=== PATIENT | female | born 1975 | race Caucasian/White ===

== ENCOUNTER 2017-03-17 07:43 | Emergency (ER) | payer BC ==
[~2017-03-17] VITALS: Ht 165.1 cm; Wt 62.3 kg
[~2017-03-17 07:43] MED LIST: ZOLOFT 100MG100 MG PO
[2017-03-17 07:50] VITALS: BP 155/87; TEMP 97.8
[2017-03-17] MEDS ORDERED: PROTONIX 40MG T40 MG PO (08:13)
[2017-03-17] MEDS ORDERED: CELEBREX 200MG200 MG PO (08:13)
[2017-03-17] MEDS ORDERED: NEURONTIN600 MG/TAB PO (08:13)
[2017-03-17] MEDS ORDERED: SINGULAIR 110 MG/TAB PO (08:14)
[2017-03-17] MEDS ORDERED: EPITOL PO (08:14)
[2017-03-17] MEDS ORDERED: ALLEGRA 180MG180 MG PO (08:15)
[2017-03-17] MEDS ORDERED: CYMBALTA 60MG60 MG PO (08:15)
[2017-03-17] MEDS ORDERED: BENADRYL25 M2 PO (08:16)
[2017-03-17 08:33] LABS: BASO # 0.1 (0.0-0.2); BASO % 0.8 % (0.0-2.0); EOS # 0.2 (0.0-0.7); EOS % 2.1 % (0-4.0); GRAN # 8.6 (1.4-6.5); GRAN % 86.8 % (42.2-75.2); LYMPH # 0.7 (1.2-3.4); LYMPH % 6.9 % (20.0-51.0); MEAN CELL VOLUME 88 fl (80.0-100.0); MEAN CORPUSCULAR HGB CONC 33 g/dl (33.0-37.0); MEAN PLATELET VOLUME 9.5 fl (7.4-10.4); MONO # 0.3 (0.1-0.6); MONO % 2.8 % (1.7-9.3); PLATELET COUNT 385 K/mm3 (130-400); RED BLOOD COUNT 3.93 M/mm3 (4.10-5.30); REDCELL DISTRIBUTION WIDTH-CV 12.8 % (11.5-14.5); WHITE BLOOD COUNT 9.9 K/mm3 (4.8-10.8)
[2017-03-17 08:37] LABS: HEMATOCRIT 34.7 % (37.0-47.0); HEMOGLOBIN 11.5 g/dl (12.5-16.0); MEAN CORPUSCULAR HEMOGLOBIN 29 pg (27.0-31.0)
[2017-03-17 08:48] LABS: ADJUSTED CALCIUM 9.1 mg/dL (8.4-10.2); ALBUMIN 4.5 gm/dL (3.5-5.0); BILIRUBIN,TOTAL 0.4 mg/dL (0.0-1.0); C-REACTIVE PROTEIN 0.9 mg/dL (0.0-0.9); CALCIUM 9.5 mg/dL (8.4-10.2); CREATININE, serum 0.53 mg/dL (0.52-1.25); TOTAL PROTEIN 7.4 gm/dL (6.4-8.2)
[2017-03-17] MEDS ORDERED: PERCOCET 325 MG1 TA2 PO (09:14)
[2017-03-17 09:46] VITALS: PULSE 93
[2017-03-17 09:50] LABS: ERYTHROCYTE SEDIMENTATION RATE 16 mm/hr (0-20)
== END 2017-03-17 09:47 | disposition home or self-care (01) ==
LOC: COL.ER 07:43
PROVIDERS: Physician Assistant
DX: G89.18 Other acute postprocedural pain (principal); M54.2 Cervicalgia; R51 Headache; G50.0 Trigeminal neuralgia; Z86.61 Personal history of infections of the central nervous system
CPT/HCPCS: J1170; J2405; J2550; J7030

== ENCOUNTER 2017-12-03 08:51 | Emergency (ER) | payer SELFPAY ==
[~2017-12-03] VITALS: Ht 165.1 cm; Wt 63.6 kg
[~2017-12-03 08:51] MED LIST changes: +ALLEGRA 180MG180 MG PO; +BENADRYL25 M2 PO; +CARAFATE 1GM1 G PO; +CELEBREX 200MG200 MG PO; +CYMBALTA 60MG60 MG PO; +EPITOL PO; +NEURONTIN600 MG/TAB PO; +PERCOCET 325 MG1 TA2 PO; +PROTONIX 40MG T40 MG PO; +SINGULAIR 110 MG/TAB PO
[2017-12-03 08:54] VITALS: TEMP 97.4
[2017-12-03] MEDS ORDERED: IMITREX 25MG TA25 MG (09:03)
[2017-12-03] MEDS ORDERED: PHENERGAN 25 TA25 MG PO (09:03)
[2017-12-03 10:38] VITALS: BP 142/80; PULSE 85
== END 2017-12-03 10:41 | disposition home or self-care (01) ==
LOC: COL.ER 08:51
DX: G43.909 Migraine, unspecified, not intractable, without status migrainosus (principal); G89.29 Other chronic pain; M54.2 Cervicalgia; Z98.890 Other specified postprocedural states
CPT/HCPCS: J0595; J2550; J3030

== ENCOUNTER → 2018-07-29 | Outpatient (CLI) | payer BC ==
[~2018-07-29] MED LIST changes: +IMITREX 25MG TA25 MG; +PHENERGAN 25 TA25 MG PO
== END ==
LOC: BHSO 13:39
DX: F33.1 Major depressive disorder, recurrent, moderate (principal)

== ENCOUNTER → 2018-08-08 | Outpatient (CLI) | payer BC | LOC: BHSO 13:00 | DX: F41.1 Generalized anxiety disorder (principal) ==

== ENCOUNTER → 2018-08-24 | Outpatient (CLI) | payer BC | LOC: BHSO 08-23 12:58 | DX: F41.1 Generalized anxiety disorder (principal) ==

== ENCOUNTER → 2018-09-05 | Outpatient (CLI) | payer BC | LOC: BHSO 12:53 | DX: F41.1 Generalized anxiety disorder (principal) ==

== ENCOUNTER → 2018-09-12 | Outpatient (CLI) | payer BC | LOC: BHSO 13:01 | DX: F41.1 Generalized anxiety disorder (principal) ==

== ENCOUNTER → 2018-09-23 | Outpatient (CLI) | payer BC | LOC: BHSO 10:56 | DX: F33.1 Major depressive disorder, recurrent, moderate (principal) ==

== ENCOUNTER → 2018-09-26 | Outpatient (CLI) | payer BC | LOC: BHSO 12:57 | DX: F41.1 Generalized anxiety disorder (principal) ==

== ENCOUNTER → 2018-10-03 | Outpatient (CLI) | payer BC | LOC: BHSO 13:00 | DX: F41.1 Generalized anxiety disorder (principal) ==

== ENCOUNTER → 2018-10-07 | Outpatient (CLI) | payer BC | LOC: BHSO 09:58 | DX: F33.41 Major depressive disorder, recurrent, in partial remission (principal) | CPT/HCPCS: G0463 ==

== ENCOUNTER → 2018-10-10 | Outpatient (CLI) | payer BC | LOC: BHSO 13:01 | DX: F41.1 Generalized anxiety disorder (principal) ==

== ENCOUNTER → 2018-11-16 | Outpatient (CLI) | payer BC | LOC: BHSO 09:06 | DX: F33.0 Major depressive disorder, recurrent, mild (principal) ==

== ENCOUNTER → 2018-11-23 | Outpatient (CLI) | payer BC | LOC: BHSO 10:03 | DX: F33.1 Major depressive disorder, recurrent, moderate (principal) ==

== ENCOUNTER → 2018-12-07 | Outpatient (CLI) | payer BC | LOC: BHSO 09:01 | DX: F33.2 Major depressive disorder, recurrent severe without psychotic features (principal) ==

== ENCOUNTER → 2018-12-09 | Outpatient (CLI) | payer BC | LOC: BHSO 10:01 | DX: F06.32 Mood disorder due to known physiological condition with major depressive-like episode (principal) | CPT/HCPCS: G0463 ==

== ENCOUNTER → 2018-12-13 | Outpatient (CLI) | payer BC | LOC: BHSO 15:00 | DX: F06.32 Mood disorder due to known physiological condition with major depressive-like episode (principal) ==

== ENCOUNTER → 2018-12-21 | Outpatient (CLI) | payer BC | LOC: BHSO 13:02 | DX: F33.1 Major depressive disorder, recurrent, moderate (principal) ==

== ENCOUNTER → 2019-01-04 | Outpatient (CLI) | payer BC | LOC: BHSO 14:00 | DX: F33.1 Major depressive disorder, recurrent, moderate (principal) ==

== ENCOUNTER → 2019-01-13 | Outpatient (CLI) | payer BC | LOC: BHSO 13:15 | DX: F06.32 Mood disorder due to known physiological condition with major depressive-like episode (principal) | CPT/HCPCS: G0463 ==

== ENCOUNTER → 2019-01-18 | Outpatient (CLI) | payer BC | LOC: BHSO 14:01 | DX: F33.1 Major depressive disorder, recurrent, moderate (principal) ==

== ENCOUNTER → 2019-02-01 | Outpatient (CLI) | payer BC | LOC: BHSO 12:58 | DX: F33.1 Major depressive disorder, recurrent, moderate (principal) ==

== ENCOUNTER → 2019-02-15 | Outpatient (CLI) | payer BC | LOC: BHSO 12:59 | DX: F41.1 Generalized anxiety disorder (principal) ==

== ENCOUNTER → 2019-02-21 | Outpatient (CLI) | payer BC | LOC: MC.RAD 10:24 | DX: Z12.31 Encounter for screening mammogram for malignant neoplasm of breast (principal) ==

== ENCOUNTER → 2019-03-01 | Outpatient (CLI) | payer BC | LOC: BHSO 13:56 | DX: F33.1 Major depressive disorder, recurrent, moderate (principal) ==

== ENCOUNTER → 2019-03-15 | Outpatient (CLI) | payer BC | LOC: BHSO 13:59 | DX: F33.0 Major depressive disorder, recurrent, mild (principal) ==

== ENCOUNTER → 2019-03-29 | Outpatient (CLI) | payer BC | LOC: BHSO 14:00 | DX: F33.1 Major depressive disorder, recurrent, moderate (principal) ==

== ENCOUNTER → 2019-04-12 | Outpatient (CLI) | payer BC | LOC: BHSO 13:59 | DX: F33.1 Major depressive disorder, recurrent, moderate (principal) ==

== ENCOUNTER → 2019-04-14 | Outpatient (CLI) | payer BC | LOC: BHSO 12:59 | DX: F41.1 Generalized anxiety disorder (principal) | CPT/HCPCS: G0463 ==

== ENCOUNTER → 2019-04-26 | Outpatient (CLI) | payer BC | LOC: BHSO 14:09 | DX: F41.1 Generalized anxiety disorder (principal) ==

== ENCOUNTER → 2019-04-28 | Outpatient (CLI) | payer BC | LOC: BHSO 13:35 | DX: F06.32 Mood disorder due to known physiological condition with major depressive-like episode (principal) | CPT/HCPCS: G0463 ==

== ENCOUNTER → 2019-05-17 | Outpatient (CLI) | payer BC | LOC: BHSO 13:58 | DX: F33.0 Major depressive disorder, recurrent, mild (principal) ==

== ENCOUNTER → 2019-05-31 | Outpatient (CLI) | payer BC | LOC: BHSO 13:55 | DX: F33.1 Major depressive disorder, recurrent, moderate (principal) ==

== ENCOUNTER → 2019-06-02 | Outpatient (CLI) | payer BC | LOC: BHSO 15:18 | DX: F06.32 Mood disorder due to known physiological condition with major depressive-like episode (principal) | CPT/HCPCS: G0463 ==

== ENCOUNTER → 2019-07-05 | Outpatient (CLI) | payer BC | LOC: BHSO 13:58 | DX: F33.1 Major depressive disorder, recurrent, moderate (principal) ==

== ENCOUNTER → 2019-07-07 | Outpatient (CLI) | payer BC | LOC: BHSO 14:35 | DX: F06.32 Mood disorder due to known physiological condition with major depressive-like episode (principal) | CPT/HCPCS: G0463 ==

== ENCOUNTER → 2019-07-19 | Outpatient (CLI) | payer BC | LOC: BHSO 13:02 | DX: F33.1 Major depressive disorder, recurrent, moderate (principal) ==

== ENCOUNTER → 2019-08-16 | Outpatient (CLI) | payer BC | LOC: BHSO 13:01 | DX: F33.1 Major depressive disorder, recurrent, moderate (principal) ==

== ENCOUNTER → 2019-09-04 | Outpatient (CLI) | payer BC | LOC: BHSO 13:36 | DX: F06.32 Mood disorder due to known physiological condition with major depressive-like episode (principal) | CPT/HCPCS: G0463 ==

== ENCOUNTER → 2019-12-11 | Outpatient (CLI) | payer BC | LOC: BHSO 13:43 | DX: F06.32 Mood disorder due to known physiological condition with major depressive-like episode (principal) | CPT/HCPCS: G0463 ==

== ENCOUNTER 2020-01-26 16:03 | Emergency (ER) | payer BC ==
[~2020-01-26] VITALS: Ht 165.1 cm; Wt 58.2 kg
[2020-01-26 16:14] VITALS: BP 110/77; TEMP 97.8
[2020-01-26 17:03] LABS: BASO # 0.1 (0.0-0.2); BASO % 0.6 % (0.0-2.0); EOS # 0.2 (0.0-0.7); EOS % 1.6 % (0-4.0); GRAN # 10.5 (1.4-6.5); HEMATOCRIT 41.6 % (37.0-47.0); LYMPH # 0.5 (1.2-3.4); LYMPH % 4.4 % (20.0-51.0); MEAN CELL VOLUME 95 fl (80.0-100.0); MEAN CORPUSCULAR HEMOGLOBIN 32 pg (27.0-31.0); MEAN CORPUSCULAR HGB CONC 34 g/dl (33.0-37.0); MONO # 0.7 (0.1-0.6); MONO % 6.1 % (1.7-9.3); PLATELET COUNT 283 K/mm3 (130-400); RED BLOOD COUNT 4.37 M/mm3 (4.10-5.30); REDCELL DISTRIBUTION WIDTH-CV 12.3 % (11.5-14.5)
[2020-01-26 17:18] LABS: ALBUMIN 4.4 gm/dL (3.5-5.0); BILIRUBIN,TOTAL 0.4 mg/dL (0.0-1.0); C-REACTIVE PROTEIN 3.6 mg/dL (0.0-0.9); CALCIUM 9.3 mg/dL (8.4-10.2); CREATININE, serum 0.7 (0.52-1.25); TOTAL PROTEIN 7.6 gm/dL (6.4-8.2)
[2020-01-26 18:27] LABS: COLLECTION METHOD CLEAN CATCH
[2020-01-26 18:40] LABS: MUCOUS Present /lpf; PH 6 (5-8); URINE APPEARANCE Hazy; URINE BACTERIA None Seen /hpf; URINE BILIRUBIN Negative (NEGATIVE); URINE BLOOD 2+ (NEGATIVE); URINE COLOR Yellow; URINE GLUCOSE Negative (NEGATIVE); URINE KETONE Negative (NEGATIVE); URINE LEUKOCYTE ESTERASE Negative (NEGATIVE); URINE NITRATE Negative (NEGATIVE); URINE PROTEIN(semi-quant) Negative (NEGATIVE); URINE RBC 20-50 /hpf; URINE UROBILINOGEN Negative (NEGATIVE)
[2020-01-26] MEDS ORDERED: PERCOCET 325 MG1 TAB PO (18:41)
[2020-01-26] MEDS ORDERED: FLAGYL500 MG PO (18:41)
[2020-01-26] MEDS ORDERED: CIPRO 500MG TA500 MG PO (18:41)
[2020-01-26 19:10] VITALS: PULSE 89
== END 2020-01-26 19:13 | disposition home or self-care (01) ==
LOC: COL.ER 16:03
PROVIDERS: Emergency Medicine
DX: K52.9 Noninfective gastroenteritis and colitis, unspecified (principal); F32.9 Major depressive disorder, single episode, unspecified; F41.9 Anxiety disorder, unspecified; Z88.5 Allergy status to narcotic agent
CPT/HCPCS: J2060; J7030; Q9967

== ENCOUNTER → 2020-02-26 | Outpatient (CLI) | payer BC ==
[~2020-02-26] MED LIST changes: +CIPRO 500MG TA500 MG PO; +FLAGYL500 MG PO; +PERCOCET 325 MG1 TAB PO
== END ==
LOC: MC.RAD 13:32
DX: Z12.31 Encounter for screening mammogram for malignant neoplasm of breast (principal)

== ENCOUNTER → 2020-03-11 | Outpatient (CLI) | payer BC | LOC: BHSO 14:34 | DX: F06.32 Mood disorder due to known physiological condition with major depressive-like episode (principal) | CPT/HCPCS: G0463 ==

== ENCOUNTER 2021-02-12 05:03 | Emergency (ER) | payer BC ==
[~2021-02-12] VITALS: Ht 165.1 cm; Wt 56.8 kg
[2021-02-12 05:06] VITALS: TEMP 97.6
[2021-02-12 05:12] LABS: COLLECTION METHOD CLEAN CATCH
[2021-02-12] MEDS ORDERED: BACTRIM DS 8001 TAB PO (05:19)
[2021-02-12 05:21] LABS: PH 7 (5-8); SQUAMOUS EPITHELIAL None Seen /hpf; URINE APPEARANCE Turbid; URINE BACTERIA None Seen /hpf; URINE BILIRUBIN Negative (NEGATIVE); URINE BLOOD 3+ (NEGATIVE); URINE COLOR Red; URINE GLUCOSE Negative (NEGATIVE); URINE KETONE Trace (NEGATIVE); URINE LEUKOCYTE ESTERASE Trace (NEGATIVE); URINE NITRATE Negative (NEGATIVE); URINE PROTEIN(semi-quant) 3+ (NEGATIVE); URINE RBC >50 /hpf; URINE UROBILINOGEN Negative (NEGATIVE)
[2021-02-12 07:15] VITALS: BP 119/80; PULSE 79
== END 2021-02-12 07:20 | disposition home or self-care, planned readmission (81) ==
LOC: COL.ER 05:03
PROVIDERS: Emergency Medicine Emergency Medical Services
DX: N30.91 Cystitis, unspecified with hematuria (principal)
CPT/HCPCS: Q9967

== ENCOUNTER → 2021-04-07 | Outpatient (CLI) | payer BC ==
[~2021-04-07] MED LIST changes: +BACTRIM DS 8001 TAB PO
== END ==
LOC: MC.RAD 14:40
DX: Z12.31 Encounter for screening mammogram for malignant neoplasm of breast (principal)

== ENCOUNTER 2023-12-12 13:08 | Emergency (ER) | payer BC ==
[~2023-12-12] VITALS: Ht 165.1 cm; Wt 59.1 kg
[2023-12-12 13:11] VITALS: TEMP 98.2
[2023-12-12] MEDS ORDERED: dexAMETHasone 10 MG/ML VIAL IV ONE (13:30)
[2023-12-12] MEDS ORDERED: Ketorolac 15 MG/ML VIAL IV ONE (13:30)
[2023-12-12] MEDS ORDERED: LR 1,000 ML IV ONE (13:30)
[2023-12-12 14:29] VITALS: BP 122/86; PULSE 95
== END 2023-12-12 14:30 | disposition home or self-care (01) ==
LOC: COL.ER 13:08
DX: G43.909 Migraine, unspecified, not intractable, without status migrainosus (principal)
CPT/HCPCS: J0780; J1100; J1885; J7120